=== PATIENT | male | born 1955 | race Caucasian/White ===

== ENCOUNTER 2018-07-29 08:08 | Observation (INO) | payer OTHER ==
[2018-07-29] VITALS (11 sets, daily range): BP systolic 110–165; BP diastolic 60–90; Ht 182.9 cm; Wt 104.5 kg
[~2018-07-29] VITALS: Ht 182.9 cm; Wt 104.5 kg
--- NOTE | ~2018-07-29 | HEMODYNAMI ---
PATIENT:NOELLE FELTON MEDICAL RECORD: [id number] : 59 [facility]# [id number] ADMISSION DATE: 07/29/18 Generatedon:07/29/201816:31 Patient name: NOELLE FELTON Patient #: [id number] SSN: : 1955 Date of study: 07/29/2018 Page: Of Hemodynamic Procedure Report Patient Data Patient Demographics Procedure consent was obtained First Name: NOELLE Gender: Male Last Name: PURNIMA : 1955 [facility] Initial: JUAQUIN Age: 63 year(s) Patient #: [id number] Race: Unknown Additional ID: [id number] Contact details Address: [address] [place] [address] [place] [place] [facility] Zip code: [address] Past Medical History Allergies Allergen Reaction Date Comments Reported Other allergy 07/29/2018 NIACIN Admission Admission Data Admission Date: 07/29/2018 Admission Time: 9:39 Room #: E07 Procedure Procedure Types Cath Procedure Diagnostic Procedure [facility] w/Coronaries PCI Procedure Coronary Stent Coronary Stent Initial Procedure Description Procedure Date Procedure Date: 07/29/2018 Procedure Start Time: 16:17 Procedure End Time: 16:31 Procedure Staff Name Function Elpidio Jama MD Performing Physician Melissa Klein RT Monitor Jaky Martinez RN Nurse Debbie House RT Scrub Theresa Hawkins RT Scrub Aryan To RT Consumer Relations Complaint Clerk Procedure Data Cath Procedure Fluoroscopy Diagnostic fluoroscopy Total fluoroscopy Time: 2.6 time: 2.6 min min Diagnostic fluoroscopy Total fluoroscopy dose: dose: 1409 mGy 1409 mGy Contrast Material Contrast Material Type Amount (ml) Isovue 300 85 Entry Location Entry Primary Successful Side Size Upsize Upsize Entry Closure Succes sful Closure Location (Fr) 1 (Fr) 2 (Fr) Remarks Device Remarks Femoral Right 5 Fr 6 Fr Exoseal artery Short Estimated blood loss: 10 ml Diagnostic catheters Device Type Used For End Catheter Placement MULTIPACK Pigtail 5 Fr LV Angiography catheter MULTIPACK JL 4.0 5Fr Left Coronary catheter Angiography MULTIPACK 3DRC 5Fr Right Coronary catheter Angiography Procedure Complications No complications Procedure Medications Medication Administration Route Dosage 0.9% NaCl I.V. 100 ml/hr Oxygen etCO2 Nasal cannula 2 l/min Lidocaine 2% added to field 20 Heparin Flush Bag added to field 2 bags (1000units/500ml NS) Versed I.V. 2 mg Fentanyl I.V. 50 mcg Versed I.V. 2 mg Fentanyl I.V. 50 mcg Versed I.V. 2 mg Heparin Bolus I.V. 4000 units Hemodynamics Rest Heart Rate: 64 (bpm) Snapshots Pre Cath Intra NCS Post Cath Vital Signs Time Heart Resp SPO2 etCO2 NIBP (mmHg) Rhythm Pain Sedation Rate (ipm) (%) (mmHg) Status Level (bpm) 15:05:16 60 12 98 27.4 142/86(112) NSR 0 (11) 10(A) , No pain 15:09:41 59 11 98 28.9 134/80(103) SB 0 (11) 10(A) , No pain 15:13:57 60 17 93 10.4 118/79(104) NSR 0 (11) 10(A) , No pain 15:18:11 62 14 94 25.2 127/84(103) NSR 0 (11) 10(A) , No pain 15:22:27 55 16 96 20 125/80(91) SB 0 (11) 10(A) , No pain 15:26:43 56 15 98 16.3 111/85(98) SB 0 (11) 10(A) , No pain 15:30:57 60 14 98 15.6 114/85(106) NSR 0 (11) 10(A) , No pain 15:35:15 54 11 97 24.5 119/79(95) SB 0 (11) 10(A) , No pain 15:39:35 55 14 98 14.8 135/78(87) SB 0 (11) 10(A) , No pain 15:44:48 57 15 99 23.7 126/73(98) SB 0 (11) 10(A) , No pain 15:49:06 55 16 98 24.5 123/78(91) SB 0 (11) 10(A) , No pain 15:53:29 53 19 97 35.6 111/77(98) SB 0 (11) 10(A) , No pain 15:57:47 53 19 98 27.4 116/75(90) SB 0 (11) 10(A) , No pain 16:02:05 54 16 98 19.3 120/78(93) SB 0 (11) 10(A) , No pain 16:06:15 53 10 99 29.7 118/79(97) SB 0 (11) 10(A) , No pain 16:10:37 58 16 97 30 107/71(80) SB 0 (11) 10(A) , No pain 16:14:51 63 17 97 28.2 113/81(101) NSR 0 (11) 10(A) , No pain 16:19:11 57 14 98 20 131/68(96) SB 0 (11) 9(A) , No pain 16:23:23 59 16 98 14.1 119/90(108) SB 0 (11) 9(A) , No pain 16:27:43 56 16 95 35.6 126/79(107) SB 0 (11) 10(A) , No pain Medications Time Medication Route Dose Verified Delivered Reason Notes Effectiveness by by 15:05:32 0.9% NaCl I.V. 100 Elpidio Jaky used for ml/hr Wiley Martinez engine installer 15:05:41 Oxygen etCO2 2 Elpidio Jaky used for Nasal l/min Wiley Martinez procedure cannula RN 15:05:47 Lidocaine 2% added 20ml Elpidio Elpidio for local to vial Wiley Jama MD anesthetic field 15:05:51 Heparin Flush added 2 Elpidio Elpidio used for Bag to bags Wiley Jama MD procedure (1000units/500ml field NS) 16:06:10 Versed I.V. 2 mg Elpidio Jaky for sedation Wiley Martinez RN 16:06:17 Fentanyl I.V. 50 Elpidio Jaky for sedation mcg Wiley Martinez RN 16:11:22 Versed I.V. 2 mg Elpidio Jaky for sedation Wiley Martinez RN 16:11:30 Fentanyl I.V. 50 Elpidio Jaky for sedation mcg Wiley Martinez RN 16:17:38 Versed I.V. 2 mg Elpidio Jaky for sedation Wiley Martinez RN 16:22:38 Heparin Bolus I.V. 4000 Elpidio Starkey for verif ied units Wiley Martinez anticoagulation with Dr. RODOLFO Jama Procedure Log Time Note 14:40:44 Time tracking: Regular hours (M-F 7:00 - 5:00) 14:40:47 Plan of Care:Hemodynamics will remain stable., Cardiac rhythm will remain stable., Comfort level will be maintained., Respiratory function will remain adequate., Patient/ family verbilizes understanding of procedure., Procedure tolerated without complication., Recovers from procedure without complications.. 14:55:50 Aryan To RT(R) sent for patient. Start room use. 14:56:13 Patient received from PCU to CCL 1 Alert and oriented. Tansferred to table in Supine position. 14:56:14 Warm blankets applied, and omid hugger turned on for patient comfort. 14:56:14 Correct patient and procedure confirmed by team. 14:56:16 Signed procedure consent form obtained from patient. 14:56:17 ECG and BP/O2 sat monitors applied to patient. 14:56:17 Full Disclosure recording started 15:01:58 Vital chart was started 15:04:59 Baseline sample Acquired. 15:05:20 Rhythm: sinus rhythm 15:05:32 0.9% NaCl 100 ml/hr I.V. was administered by Jaky Martinez RN; used for procedure; 15:05:41 Oxygen 2 l/min etCO2 Nasal cannula was administered by Jaky Martinez RN; used for procedure; 15:05:47 Lidocaine 2% 20ml vial added to field was administered by Elpidio Jama MD; for local anesthetic; 15:05:51 Heparin Flush Bag (1000units/500ml NS) 2 bags added to field was administered by Elpidio Jama MD; used for procedure; 15:05:51 H&P Date Dictated: 07/29/2018 Within 30 days and on chart.. 15:05:52 Pre-procedure instructions explained to patient. 15:05:52 Pre-op teaching completed and patient verbalized understanding. 15:05:55 Family in waiting room. 15:05:57 Patient NPO since Midnight. 15:06:11 Patient allergic to Other allergyNIACIN 15:06:16 Is the patient allergic to Iodine/contrast media? No. 15:06:20 Was the patient premedicated? No 15:07:09 Patient diabetic? No. 15:07:14 Is patient on blood thinner?Yes 15:07:16 ACC The patient was administered the following blood thiners within the last 24 hours: ACCPlavix 15:07:33 Previous problem with sedation/anesthesia? No ? 15:07:34 Snore? Yes 15:07:36 Sleep apnea? No 15:07:37 Deviated septum? No 15:07:38 Opens mouth fully? Yes 15:07:39 Sticks out tongue? Yes 15:07:41 Airway obstruction? No ? 15:07:43 Dentures? No ? 15:07:51 Pre procedure: right dorsailis pedis pulse 2+ Normal; easily identifiable; not easily obliterated 15:07:54 Patient pain scale 0/10 ?. 15:07:59 IV patent on arrival in right wrist with 0.9% NaCl at KVO. 15:08:02 Lab results completed and on chart. 15:08:31 Right groin area was prepped with chlora-prep and draped in sterile fashion 15:08:32 Alarms reviewed by R. N. 15:08:32 Sharps counted by scrub and verified by R.N. 15:08:37 Use device set Femoral Dx 15:08:38 ACIST Syringe (69694) opened to sterile field. 15:08:39 Bag Decanter (2002S) opened to sterile field. 15:08:39 Medline Cath Pack ([id number]) opened to sterile field. 15:08:40 DIAGNOSTIC WIRE .035 260cm J wire (902766) opened to sterile field. 15:08:41 ACIST Hand Control (75630) opened to sterile field. 15:08:41 ACIST Manifold (03801) opened to sterile field. 15:08:42 DIAGNOSTIC Multipack 5Fr catheter set (CH5271) opened to sterile field. 15:08:43 Tegaderm 4 x 4 (1626W) opened to sterile field. 15:08:44 SHEATH 5FR [place] (QMP293) opened to sterile field. 15:19:33 Zero performed for pressure channel P1 15:34:46 Zero performed for pressure channel P1 15:53:42 The patient's family notified of status per Aryan To RT(R). 15:54:05 Procedure delayed due to: DR JAMA HAD TO SEE PATIENTS IN ER 16:03:40 Final Timeout: patient, procedure, and site verified with staff and physician. All members of the team are in agreement. 16:03:42 Right groin site verified by team. 16:03:45 Fire Safety Assessment: A--An alcohol-based skin anteseptic being used preoperatively., C--Open oxygen or nitrous oxide is being used., D--An ESU, laser, or fiber-optic light is being used. 16:03:54 Physical assessment completed. ASA score P 2 - A patient with mild systemic disease as per Elpidio Jama MD. 16:03:58 Sedation plan: IV Moderate Sedation Medication:Versed, Fentanyl 16:06:10 Versed 2 mg I.V. was administered by Jaky Martinez RN; for sedation; 16:06:17 Fentanyl 50 mcg I.V. was administered by Jaky Martinez RN; for sedation; 16:11:22 Versed 2 mg I.V. was administered by Jaky Martinez RN; for sedation; 16:11:30 Fentanyl 50 mcg I.V. was administered by Jaky Martinez RN; for sedation; 16:17:22 Procedure started. 16:17:24 Local anesthetic to right femoral artery with Lidocaine 2% by Elpidio Jama MD.INITIAL ACCESS ONLY 16:17:38 Versed 2 mg I.V. was administered by Jaky Martinez RN; for sedation; 16:18:02 A 5 Fr sheath was inserted into the Right Femoral artery 16:18:09 A MULTIPACK Pigtail 5 Fr catheter was advanced over the wire and used for LV Angiography. 16:18:42 LV gram done using LOWERY 16:18:50 Injector settings: Ml/sec: 7, Volume: 15, 16:18:58 EF : 30 % 16:19:01 Catheter removed. 16:19:06 A MULTIPACK JL 4.0 5Fr catheter was advanced over the wire and used for Left Coronary Angiography. 16:20:12 Catheter removed. 16:20:20 A MULTIPACK 3DRC 5Fr catheter was advanced over the wire and used for Right Coronary Angiography. 16:20:25 Use device set PRITESH PCI 16:20:28 SHEATH 6FR [place] (GWX289) opened to sterile field. 16:20:30 INFLATOR Merit Abhijit (OS6470) opened to sterile field. 16:20:38 CHOICE PT Extra Support 182cm wire ([id number]) opened to sterile field. 16:22:38 Heparin Bolus 4000 units I.V. was administered by Jaky Martinez RN; for anticoagulation; verified with Dr. Jama 16:22:39 Catheter removed. 16:23:02 Sheath upsized to a 6 Fr Short. 16::38 6 Fr XBLAD 4.0 guide catheter was inserted over the wire 16:23:52 CHOICE PT ES wire advanced. 16:25:36 Place stent Inflation Number: 1 A INTEGRITY RX 3.0 x 18 stent ([id number]) was prepped and advanced across the Mid LAD. The stent was deployed at 15 MAXI for 0:12 (min:sec). 16:25:54 Stent catheter was removed intact over wire. 16:25:54 Wire removed. 16:25:58 Guide catheter removed. 16:26:06 Sheath removed intact; hemostasis achieved with Exoseal to the Right Femoral artery. 16:26:08 Procedure ended.(Physican Out) 16:26:46 Fluoroscopy time 02.60 minutes. 16:26:48 Flurop Dose total: 1409 16:26:48 Fluoroscopy dose: 1409 mGy 16:26:55 Contrast amount:Isovue 300 85ml. 16:26:57 Sharps counted by scrub and verified by R.N. 16:26:58 Insertion/operative site no bleeding no hematoma. 16:27:02 Post-op/insertion site Right Femoral artery dressed using a 4 x 4 and Tegaderm. 16:27:05 Post right femoral artery:stable, clean and dry 16:27:07 Post Procedure Pulses reassessed and unchanged 16:27:09 Post-procedure physical assessment completed. ASA score P 2 - A patient with mild systemic disease as per Elpidio Jama MD. 16:27:11 Post procedure rhythm: unchanged. 16:27:16 Estimated blood loss: 10 ml 16:27:18 Post procedure instruction explained to patient.Patient verbalizes understanding. 16:27:18 Patient needs reinforcement of post procedure teaching. 16:27:31 Procedure type changed to Cath procedure, Diagnostic procedure, LHC, LHC w/Coronaries, PCI procedure, Coronary Stent, Coronary Stent Initial 16:28:07 Procedure Complication : No complications 16:28:50 EXOSEAL 6Fr (EX600) opened to sterile field. 16:29:28 GUIDE 6FR XBLAD 4.0 catheter ([id number]) opened to sterile field. 16:30:18 Procedure and supply charges have been captured, reviewed, submitted and are correct. 16:30:19 See physician's report for complete and final results. 16:30:57 Vital chart was stopped 16:30:59 Report given to PCU. 16:31:02 Patient transfered to PCU with Bed. 16:31:07 Procedure ended. 16:31:07 Full Disclosure recording stopped 16:31:13 End room use (Document Last) Intervention Summary Intervention Notes Time ActionType Lesion and Equipment Action# Pressure Duration Attributes Used 16:25:36 Place stent Mid LAD INTEGRITY RX 1 15 00:12 3.0 x 18 stent ([id number]) Device Usage Item Name Manufacture Quantity Catalog Number Hospital Part Current Mini mal Lot# / Charge Number Stock Stock Serial# Code ACIST Acist 1 46539 666022 163487 516186 20 Syringe Medical (56596) Systems Inc Bag Decanter Microtek 1 2001S 110198 63565 188703 5 (2001S) Medical Inc. Medline Cath Medline 1 [id number] 501046 60530 949737 5 Pack ([id number]) DIAGNOSTIC [place] 1 788601 263136 780028 398752 30 WIRE .035 260cm J wire (294814) ACIST Hand Acist 1 33560 994917 500157 759970 5 Control Medical (08479) Systems Inc ACIST Acist 1 22701 242201 914683 937918 5 Manifold Medical (20545) Systems Inc DIAGNOSTIC Cardinal 1 MN2844 485899 17277 438826 30 Multipack Health 5Fr catheter set (ZG9201) Tegaderm 4 x 3M 1 1626W 437443 909455 351621 5 4 (1626W) SHEATH 5FR Terumo 1 DAZ590 919764 869467 513542 5 [place] (VZD842) MULTIPACK Cardinal 1 993734 5 Pigtail 5 Fr Health catheter MULTIPACK JL Cardinal 1 645361 5 4.0 5Fr Health catheter MULTIPACK Cardinal 1 817723 5 3DRC 5Fr Health catheter SHEATH 6FR Terumo 1 ACG698 653993 873855 443458 40 [place] (QYA691) INFLATOR Merit 1 SA4828 151719 041724 285422 15 [facility] Medical BasixCompak (CG9758) CHOICE PT [place] 1 [id number] 216135 979385 238796 5 Extra Scientific Support 182cm wire ([id number]) INTEGRITY RX Medtronic 1 [id number] 652455 542079 508134 5 [id number] 3.0 x 18 stent ([id number]) EXOSEAL 6Fr Cardinal 1 EX600 714425 005267 462892 10 (EX600) Health GUIDE 6FR Cardinal 1 [id number] 374639 665734 867400 3 XBLAD 4.0 Health catheter (66751827) Signature Audit Dola Stage Time Signature Unsigned Intra-Procedure 07/29/2018 Melissa 4:31:26 PM Counts RT(R) Signatures Monitor : Melissa Signature : Counts RT Date : Time : [place] [address] [place] [address]
[2018-07-29] MEDS ORDERED: ZESTRIL10 MG PO (08:13)
[2018-07-29] MEDS ORDERED: CRESTOR20 MG PO (08:14)
[2018-07-29] MEDS ORDERED: ZETIA10 MG PO (08:14)
[2018-07-29] MEDS ORDERED: BAYER CHEWABLE81 MG (08:14)
[2018-07-29 08:25] LABS: BASOPHILS 0.3 % (0-2); EOSINOPHILS 7.2 % (0-7); HEMOGLOBIN 16.3 g/dL (13.5-17.5); IMMATURE GRANULOCYTES 0.2 % (0-5); LYMPHOCYTES 34.6 % (15-50); MCH 30.3 pg (26.0-34.0); MCV 89.2 fL (80.0-100.0); MONOCYTES 9.1 % (2-11); NEUTROPHILS 48.6 % (40-80); PLATELET COUNT 191 10x3/uL (130-400); RBC 5.38 10x6/uL (4.20-6.10); RDW 13.6 % (11.5-14.5); WBC 9.8 10x3/uL (4.8-10.8)
[2018-07-29 08:41] LABS: ALBUMIN 3.6 g/dL (3.4-5.0); ALKALINE PHOSPHATASE 58 U/L (46-116); ALT (SGPT) 40 U/L (10-68); BILIRUBIN - TOTAL 0.49 mg/dL (0.2-1.3); CALC OSMOLALITY 282 mosm/kg (275-300); CALCIUM 9.2 mg/dL (8.5-10.1); CARBON DIOXIDE 24.7 mmol/L (21.0-32.0); CHLORIDE - SERUM 105 mmol/L (98-107); CREATININE - SERUM 1.2 mg/dL (0.6-1.3); GLUCOSE 112 mg/dL (74-106); POTASSIUM - SERUM 3.8 mmol/L (3.5-5.1); PROTEIN - SERUM 7.3 g/dL (6.4-8.2); SODIUM 141 mmol/L (136-145); UREA NITROGEN 14 mg/dL (7-18); eGFR NON AFRICAN AMERICAN 65 mL/min (90-120)
[2018-07-29 08:55] LABS: CKMB 1.9 U/L (0.0-3.6); CREATINE KINASE 117 UL (21-232)
[2018-07-29 08:58] LABS: TROPONIN-I 0.516 ng/mL (0.000-0.060)
--- NOTE | 2018-07-29 09:06 | NUR ---
PT REPORTS THAT HE HAD 81 MG ASA THIS AM AT HOME.
--- NOTE | 2018-07-29 18:20 | NUR ---
ASSESSMENT COMPLETE RESP UNLABORED O2 ON AT 2 LPM DRS TO RT GROIN C/D/I PPPX4 AT BEDSIDE WILL CONTINUE TO MONITOR
--- NOTE | 2018-07-29 19:46 | NUR ---
REECIEVED RESTING IN BED WITH EYES OPEN. ALERT AND ORIENTED X4. ASKING TO GET OUT OF BED. EXPLAINED THAT HE NEEDED TO WAIT AT LEAST 4 HRS BEFORE GETTING OUT OF BED. VOICED UNDERSTANDING. DENIES ANY NEEDS.
[2018-07-30 05:06] LABS: BASOPHILS 0.3 % (0-2); EOSINOPHILS 6.8 % (0-7); HEMATOCRIT 45.4 % (42.0-54.0); HEMOGLOBIN 15.5 g/dL (13.5-17.5); IMMATURE GRANULOCYTES 0.2 % (0-5); LYMPHOCYTES 33.7 % (15-50); MCH 30.9 pg (26.0-34.0); MCHC 34.1 g/dL (31.0-37.0); MCV 90.6 fL (80.0-100.0); MONOCYTES 8.6 % (2-11); NEUTROPHILS 50.4 % (40-80); PLATELET COUNT 159 10x3/uL (130-400); RBC 5.01 10x6/uL (4.20-6.10); RDW 13.7 % (11.5-14.5); WBC 8.8 10x3/uL (4.8-10.8)
[2018-07-30 05:10] LABS: ANION GAP 14.2 mmol/L (8-16); CALCIUM 8.3 mg/dL (8.5-10.1); CARBON DIOXIDE 24.3 mmol/L (21.0-32.0); CREATININE - SERUM 1.1 mg/dL (0.6-1.3)
[2018-07-30 05:11] LABS: POTASSIUM - SERUM 4.5 mmol/L (3.5-5.1)
--- NOTE | 2018-07-30 07:09 | NUR ---
RESTING QUIETLY RESP UNLABORED EYES CLOSED NAD NOTED
[2018-07-30 07:40] VITALS: BP 119/56
--- NOTE | 2018-07-30 07:50 | NUR ---
IN PATIENT CHART TO COMPLETE THE DISCHARGE
[2018-07-30] MEDS ORDERED: PLAVIX75 MG PO (07:53)
--- NOTE | 2018-07-30 10:25 | NUR ---
REVIEWED DISCHARGE INSTRUCTIONS WITH PT AND BOTH STATE UNDERSTANDING COPY GIVEN DCD SALINE LOCK TO RT WRIST WITH IV CATHETER INTACT SITE FREE OF REDNESS OR EDEMA PT DISCHARGED HOME IN STABLE CODITION WITH ALL PERSONAL BELONGINGS LEFT UNIT VIA W/C
--- NOTE | 2018-08-01 08:30 | MORECARE ---
CASE MANAGEMENT DISCHARGE SUMMARY PATIENT: NOELLE FELTON JUAQUIN UNIT: [id number] ADM DATE: 07/29/18 AGE: 63 : [birth year] SEX: M ROOM/BED: D.2115 AUTHOR: MEGHANN NUNES PHYSICIAN: REFERRING PHYSICIAN: HAMZAH CRAIG MD DATE OF SERVICE: 08/01/18 Discharge Plan Patient Name: NOELLE FELTON [facility] [facility] 1955 Planned Disposition: Home Anticipated Discharge Date: 07/30/18 Discharge Date: 07/30/2018 Expected LOS: 1 Initial Reviewer: [email or web address] Initial Review Date: 08/01/2018 Generated: 08/01/18 9:29 am Patient Name: NOELLE FELTON Page 98414 at 0830 All edits/amendments must be made on the electronic document DICTATION DATE: 08/01/18828 BRAILLE TYPIST: TEMO 08/01/18828 RPT#: [id number] DC DATE:07/30/18 STATUS: DIS IN [facility] [address] [place] [address] END OF REPORT
--- NOTE | 2018-08-01 11:46 | CN ---
PATIENT NAME:NOELLE FELTON MEDICAL RECORD: [id number] : 59 LOCATION:D. D.2115 ADMIT DATE: 07/29/18 ACCOUNT: [id number] CONSULTING PHYSICIAN: HAMZAH CRAIG MD REFERRING PHYSICIAN: HAMZAH CRAIG MD DATE OF CONSULTATION: 07/29/2018 DIAGNOSES: 1. Unstable angina, acute coronary syndrome. 2. Coronary artery disease. 3. Previous myocardial infarction. 4. Previous PTCA and stent. 5. Ischemic cardiomyopathy. 6. ICD. 7. Hypertension. 8. Hyperlipidemia. HISTORY OF PRESENT ILLNESS: This is a gentleman with a past history of coronary artery disease, is followed at [place]. He has an ICD that has malfunctioned, is set to have the ICD revamped next month, but he began having chest pain. He does have a history of a myocardial infarction in the past. REVIEW OF SYSTEMS: The patient reports easy bruising but reports no swollen glands. The patient reports no fever, no night sweats, no significant weight gain, no significant weight loss. No significant exercise tolerance. The patient reports no dry eyes, no irritation, no vision change. Patient reports no difficulty hearing and no ear pain. Patient reports no frequent nose bleeds or nose and sinus problems. Patient reports on arm pain on exertion. No shortness of breath while lying down. No history of heart murmur. Patient reports no cough, no wheezing or coughing up blood. Patient reports no abdominal pain, no vomiting. Normal appetite. No diarrhea and not vomiting blood. No nausea and no constipation. Patient reports no incontinence. No difficulty urinating. No hematuria. No increased frequency. Patient reports no muscle aches. No weakness, no arthralgias, no back pain. No swelling of the extremities. Patient reports no abnormal mole, no jaundice, no rashes. Reports no loss of consciousness. No weakness and no numbness. No seizures, dizziness, or headaches. The patient reports no depression, no sleep disturbance, feeling safe in a relationship and no alcohol abuse. Patient reports on fatigue. Reports no runny nose or sinus pressure. No itching, no hives, and no frequent sneezing. PHYSICAL EXAMINATION: GENERAL APPEARANCE: Well-nourished, well-developed, appears stated age. Level of distress, comfortable. PSYCHIATRIC: Mental status, alert, normal affect. Orientation, oriented to time, place and person. EYES: Lids and conjunctiva, noninjected. No discharge, no pallor. ENT: Lips, teeth, gums, normal dentition. Oropharynx, no cyanosis, no pallor. NECK: Carotid arteries, bilateral normal upstroke, no bruits, no thrills. JUGULAR VEINS: No jugular venous pressure or distention. CERVICAL LYMPH NODES: Nontender, nonenlarged. THYROID: Not enlarged. Nontender. No nodules. LUNGS: Respiratory effort, unlabored. CHEST: Normal curvature. No thoracic deformity. No chest wall tenderness. Percussion, resonant. Auscultation, clear. No wheezes, no rales, no rhonchi. CONSULT REPORT [id number] NOELLE FELTON CARDIOVASCULAR: Precordial exam, nondisplaced. No heaves or pericardial thrills. Rate and rhythm, regular. Heart sounds, normal S1, normal S2. No S3, no gallop, no rub. Systolic murmur, not heard. Diastolic murmur, not heard. EXTREMITIES: No cyanosis, no edema. Peripheral pulses, full and equal in all extremities, except as noted. No bruits appreciated. ABDOMEN: Soft, nondistended. Normal aorta. No bruit. Nontender. No masses. Liver, nontender, no hepatomegaly. Spleen, nontender, no splenomegaly. MUSCULOSKELETAL: No joint tenderness. No joint swelling. No erythema. NEUROLOGICAL: Normal gait, normal strength, normal tone. SKIN: Warm and dry. OVERALL IMPRESSION: Unstable angina, acute coronary syndrome. We will proceed with coronary angiography. Further care depends upon findings of the angiography. We will interrogate the ICD and see what the etiology of the ICD malfunction is as well. TRANSINT:[id number] Voice Confirmation ID: [id number] DOCUMENT ID: [id number] HAMZAH CRAIG MD at 1146 CC: [id number] DICTATION DATE: 07/29/18 163 [employer] TE[employer]ER: 07/30/18 0034 DIS IN 07/30/18 [facility] [address] [place] [address]
--- NOTE | 2018-08-01 11:46 | OP ---
PATIENT NAME: NOELLE FELTON MEDICAL RECORD: [id number] :[birth year] LOCATION:D.M2 D.2115 ADMISSION DATE:07/29/18 SURGEON: HAMZAH CRAIG MD DATE OF OPERATION: 07/29/2018 PROCEDURES: 1. PTCA and stent of LAD. 2. Left heart catheterization. 3. Selective coronary angiography. 4. Left ventriculogram. INDICATIONS: Angina, acute coronary syndrome, coronary artery disease, and cardiomyopathy. PROCEDURE IN DETAIL: After informed consent was obtained and after detailed explanation of risks, benefits as well as alternative therapies, the patient elected to proceed with angiogram and angioplasty. The right femoral area was prepped and draped in normal sterile fashion. Right femoral artery was cannulated via modified Seldinger technique with placement of 6-Urdu sheath. All catheters exchanged through this sheath. FINDINGS: The left ventriculogram was performed in standard 30-degree LOWERY view, reveals global hypokinesis, ejection fraction in the 30% range. SELECTIVE CORONARY ANGIOGRAPHY: 1. Left main is with no significant angiographic disease. 2. Left anterior descending has 80+ percent stenosis in the mid vessel. 3. Left circumflex has mild irregularities, but no flow-limiting stenosis. 4. Right coronary has mild irregularities, but no flow-limiting stenosis. PTCA AND STENT OF THE LAD: The stent used was a 3.0 x 18-mm Integrity. Result was 0% residual stenosis. OVERALL IMPRESSION: Successful PTCA and stent of the LAD going from 80+ percent initial stenosis to 0% residual. TRANSINT:[id number] Voice Confirmation ID: [id number] DOCUMENT ID: [id number] HAMZAH CRAIG MD at 1146 CC: [id number] DICTATION DATE: 07/29/18 1631 RAILROAD FIRER: 07/30/18 0037 DIS IN 07/30/18 [facility] [address] [place] [address]
== END 2018-07-30 10:25 | disposition home or self-care (01) ==
LOC: D.ER 08:08 → D.M2 09:39 → D.EDHOLD 09:39 → OBSVTIME 09:39 → D.M2 16:43
PROVIDERS: Family Medicine; ADMIT Internal Medicine Interventional Cardiology
DX: I21.4 Non-ST elevation (NSTEMI) myocardial infarction (principal); I25.110 Atherosclerotic heart disease of native coronary artery with unstable angina pectoris; I25.5 Ischemic cardiomyopathy; I10 Essential (primary) hypertension; E78.5 Hyperlipidemia, unspecified; Z95.0 Presence of cardiac pacemaker